=== PATIENT | female | born 1975 | race Caucasian/White ===

== ENCOUNTER 2017-06-24 12:45 | Emergency (ER) | payer OTHER ==
[2017-06-24 13:09] VITALS: O2SAT 98
[2017-06-24] MEDS ORDERED: BENADRYL 50 MG/ML ONE (13:37)
[2017-06-24] MEDS ORDERED: Pepcid 20 MG ONE (13:37)
[2017-06-24] MEDS: Pepcid 20 MG PO ONE (13:38)
[2017-06-24] MEDS: BENADRYL 50 MG/ML IM ONE (13:39)
--- NOTE | 2017-06-24 13:55 | ERPHSYRPT ---
- History of Present Illness Time Seen by Provider: 06/24/17 13:27 Source: patient Patient Subjective Stated Complaint: possible allergic reaction to fish sandwhich. states itching to mouth and face Triage Nursing Assessment: to er c/o mild hives to left face and itching to mouth and throat. no swelling noted to lips or tounge though pt states throat irritation present. pt p/w/d resp easy Physician History: CC: allergic Hx: 42 y/o half-way inmate has hx of shellfish allergy. She ate a fish sandwhich at 11:30 AM. She then had some itching hives and felt tongue thick. No V/D. No diff breathing. She has hx of DM and HTN. She had prior hysterectomy. Symptoms mild. Took a benadryl tablet [employer]. No wheezing. Timing/Duration: today Severity: moderate Allergies/Adverse Reactions: Penicillins Allergy (Verified 06/24/17 13:10) Home Medications: No Reportable Medications [No Reported Medications] 06/24/17 [History] Hx Influenza Vaccination/Date Given: No - Review of Systems Constitutional: No Symptoms Eyes: No Vision Changes Ears, Nose, & Throat: No Mouth Swelling Respiratory: No Cough, No Dyspnea Cardiac: No Chest Pain, No Syncope Abdominal/Gastrointestinal: No Abdominal Pain, No Nausea, No Vomiting, No Diarrhea Skin: Pruritis, Rash Neurological: No Headache All Other Systems: Reviewed and Negative - Past Medical History Pertinent Past Medical History: Yes Cardiac History: Hypertension Respiratory History: Asthma Endocrine Medical History: Diabetes Type II Other Medical History: restless leg syn - Past Surgical History Past Surgical History: Yes Musculoskeletal: Other Female Surgical History: Hysterectomy Other Surgical History: left knee - Social History Smoking Status: Former smoker Drug Use: none - Female History Hx Last Menstrual Period: 2011 Hx Now: No - Nursing Vital Signs Nursing Vital Signs: Initial Vital Signs Temperature 98.5 F 06/24/17 13:03 Pulse Rate 87 06/24/17 13:03 Respiratory Rate 18 06/24/17 13:03 Blood Pressure 161/102 06/24/17 13:03 O2 Sat by Pulse Oximetry 98 06/24/17 13:03 Pain Scale Pain Intensity 0 - Physical Exam General Appearance: alert Eye Exam: PERRL/EOMI Ears, Nose, Throat Exam: normal ENT inspection, moist mucous membranes, other ( no swelling) Neck Exam: normal inspection, non-tender, supple Respiratory Exam: normal breath sounds, lungs clear, No respiratory distress, No wheezing Cardiovascular Exam: regular rate/rhythm, No murmur Gastrointestinal/Abdomen Exam: soft, No tenderness, No distention Extremity Exam: normal inspection, normal range of motion Neurologic Exam: alert, oriented x 3, cooperative, sensation nml, No motor deficits Skin Exam: warm, dry, No rash SpO2 Interpretation: normal SpO2: 98 Oxygen Delivery: Room Air - Course Nursing assessment & vital signs reviewed: Yes Ordered Tests: Active Orders 24 hr Category Date Time Status Accucheck STAT Care 06/24/17 13:30 Active Medication Summary Discontinued Medications Generic Name Dose Route Start Last Admin Trade Name Freq PRN Reason Stop Dose Admin Diphenhydramine HCl 50 mg 06/24/17 13:30 06/24/17 13:39 Benadryl 50 Mg/Ml IM 06/24/17 13:31 50 mg STAT ONE Administration Diphenhydramine HCl Confirm 06/24/17 13:37 Benadryl 50 Mg/Ml Administered 06/24/17 13:38 Dose 50 mg .ROUTE .STK-MED ONE Famotidine 40 mg 06/24/17 13:30 06/24/17 13:38 Pepcid 20 Mg PO 06/24/17 13:31 40 mg STAT ONE Administration Famotidine Confirm 06/24/17 13:37 Pepcid 20 Mg Administered 06/24/17 13:38 Dose 40 mg .ROUTE .STK-MED ONE - Progress Progress Note: 06/24/17 13:00 She appears stable. Already somewhat hypertensive. She does not appear to have anaphylaxis and there is some risk of hypertension with epi. Benadryl and pepvid given and will recheck. Minimal red hives to face/forehead area. 06/24/17 13:55 She feels much better. No itching. BP better. Will release with benadryl and pepcid. Counseled pt/family regarding: diagnosis, need for follow-up - Departure Time of Disposition: 13:56 Departure Disposition: Home Clinical Impression: Allergic reaction to food Qualifiers: Encounter type: initial encounter Qualified Code(s): T78.1XXA - Other adverse food reactions, not elsewhere classified, initial encounter Condition: Stable Critical Care Time: No Instructions: Food Allergy Additional Instructions: Use benadryl 50mg every 6 hours for next 24 hours then as needed. Use pepcid 20mg twice a day for next 24 hours then as needed. Return for problems or concerns. Avoid fish products.
[2017-06-24 14:04] VITALS: BP 117/77; PULSE 79
== END 2017-06-24 14:05 ==
LOC: ED 12:45
DX: T78.1XXA Other adverse food reactions, not elsewhere classified, initial encounter (principal); E11.9 Type 2 diabetes mellitus without complications; I10 Essential (primary) hypertension
CPT/HCPCS: 82962; 96372; 99284; J1200; A9270-GY